=== PATIENT | female | born 1950 | race Two or more races ===

== ENCOUNTER 2022-10-07 06:32 | Day surgery (SDC) | payer OTHER ==
[~2022-10-07] VITALS: Ht 157.5 cm; Wt 68.0 kg
[~2022-10-07 06:32] MED LIST: ALENDRONATE SOD70 MG PO; ALLERGY RELIE15.8 ML NASAL; BREO ELLIPTA I1 EACH IH; BUPROPION XL300 MG PO; CLONAZEPAM1 M1 PO; CRESTOR10 MG PO; DILTIAZEM ER240 M3 PO; GABAPENTIN100 M2 PO; MAXIMUM D3325 MCG PO; PROAIR DIGIHAL90 MCG IH; TOPROL XL50 M1 PO
== END 2022-10-07 20:40 | disposition home or self-care (01) ==
LOC: CIR.AMB 06:32
PROVIDERS: ATTEND Surgery
DX: D05.11 Intraductal carcinoma in situ of right breast (principal); N60.91 Unspecified benign mammary dysplasia of right breast; R59.0 Localized enlarged lymph nodes; R92.1 Mammographic calcification found on diagnostic imaging of breast; Z20.822 Contact with and (suspected) exposure to COVID-19; Z88.2 Allergy status to sulfonamides; I10 Essential (primary) hypertension; F17.210 Nicotine dependence, cigarettes, uncomplicated
CPT/HCPCS: 19301; 38525; A9541

== ENCOUNTER 2025-06-22 15:24 | Emergency (ER) | payer OTHER ==
[~2025-06-22] VITALS: Ht 157.5 cm; Wt 68.0 kg
[2025-06-22] MEDS ORDERED: ORPHENADRINE CITRATE 30 MG/ML AMPUL IM STA (16:38)
[2025-06-22] MEDS ORDERED: KETOROLAC TROMETHAMINE 30 MG VIAL IM STA (16:38)
[2025-06-22] MEDS ORDERED: DEXAMETHASONE SODIUM PHOSPHATE 4 MG/ML VIAL IM STA (16:38)
== END 2025-06-22 19:39 | disposition home or self-care (01) ==
LOC: ER 15:25
DX: M25.571 Pain in right ankle and joints of right foot (principal); Z88.2 Allergy status to sulfonamides
CPT/HCPCS: 73600; 96372; 99283; J1100; J1885; J2360

== ENCOUNTER 2025-07-11 11:27 | Outpatient (CLI) | payer OTHER | END 2025-07-11 11:31 | disposition home or self-care (01) | LOC: RAD 11:27 | PROVIDERS: ATTEND Orthopaedic Surgery | DX: S82.64XA Nondisplaced fracture of lateral malleolus of right fibula, initial encounter for closed fracture (principal); X58.XXXA Exposure to other specified factors, initial encounter; Y93.9 Activity, unspecified; Y92.9 Unspecified place or not applicable; Y99.9 Unspecified external cause status ==